=== PATIENT | male | born 1960 | race Caucasian/White ===

== ENCOUNTER → 2021-11-09 | Outpatient (CLI) | payer BC ==
[2021-11-09 18:50] LABS: HEPATITIS B SURFACE ANTIBODY POSITIVE (POSITIVE); HEPATITIS B SURFACE ANTIGEN NEGATIVE (NEGATIVE)
[2021-11-09 19:02] LABS: GC DNA AMPLIFICATION NEGATIVE (NEGATIVE)
[2021-11-09 22:20] LABS: GC DNA AMPLIFICATION NEGATIVE (NEGATIVE)
[2021-11-12 02:12] LABS: %CD4 Pos Lymphs 4.3 % (30.8-58.5); ABS Eosinophils 0.2 x10E3/uL (0.0-0.4); ABS Lymphs 1.4 x10E3/uL (0.7-3.1); ABS Monocytes 0.4 x10E3/uL (0.1-0.9); ABS Neutophils 1.9 x10E3/uL (1.4-7.0); Abs CD4 Helper 60 /uL (359-1519); Abs CD8 Suppres 1134 /uL (109-897); CD4/CD8 Ratio 0.05 (0.92-3.72); Eosinophils 6 % (Not Estab.); HCT 42.8 % (37.5-51.0); HEPATITIS A IgG TOTAL Negative (Negative); HEPATITIS B CORE ANTIBODY IGG Negative (Negative); HGB 14.6 g/dL (13.0-17.7); HIV-1 RNA PCR QUANT 2 LC550285 89300 copies/mL (.); HIV-1 RNA PCR QUANT 3 LC550285 4.951 (.); Immature Grans 0 % (Not Estab.); Lymphocytes 35 % (Not Estab.); MCH 28.9 pg (26.6-33.0); MCHC 34.1 g/dL (31.5-35.7); MCV 85 fL (79-97); Monocytes 9 % (Not Estab.); Neutrophils 49 % (Not Estab.); Platelets 212 x10E3/uL (150-450); RBC 5.06 x10E6/uL (4.14-5.80); RDW 15.5 % (11.6-15.4); WBC 3.9 x10E3/uL (3.4-10.8)
== END ==
LOC: M PLALAB 14:36
PROVIDERS: ATTEND Internal Medicine Infectious Disease
DX: B20 Human immunodeficiency virus [HIV] disease (principal); Z11.3 Encounter for screening for infections with a predominantly sexual mode of transmission

== ENCOUNTER → 2021-12-21 | Outpatient (CLI) | payer BC ==
[2021-12-21 16:23] LABS: ALBUMIN 3.9 GM/DL (3.2-5.2); BILIRUBIN,TOTAL 0.4 MG/DL (0.2-1.0); CALCIUM LEVEL 9.8 MG/DL (8.8-10.2); CREATININE FOR GFR 1.3 MG/DL (0.70-1.30); GLOMERULAR FILTRATION RATE 59.9 (>49); POTASSIUM SERUM 4.6 MEQ/L (3.5-5.1); TOTAL PROTEIN 7.3 GM/DL (6.4-8.2)
== END ==
LOC: M PLALAB 11:41
PROVIDERS: ATTEND Internal Medicine Infectious Disease
DX: B20 Human immunodeficiency virus [HIV] disease (principal)

== ENCOUNTER → 2022-02-01 | Outpatient (CLI) | payer BC ==
[~2022-02-01] MED LIST: E-Z-GAS II EFFERVESCENT PACKET (SODIUM BICARB./CITRIC ACID/SIMETHICONE) As Ordered ONE; E-Z-HD 98% w/w 340GM SUSP BTL As Ordered ONE; E-Z-PAQUE 96% w/w SUSP 176GM BTL As Ordered ONE
== END ==
LOC: M RAD 07:44
PROVIDERS: ATTEND Internal Medicine Infectious Disease
DX: R13.10 Dysphagia, unspecified (principal)

== ENCOUNTER → 2022-03-02 | Outpatient (CLI) | payer BC ==
[~2022-03-02] MED LIST changes: +ATOR1TAB19 PO; +BIKT1TAB PO; +CITA20TA6 PO; -E-Z-GAS II EFFERVESCENT PACKET (SODIUM BICARB./CITRIC ACID/SIMETHICONE) As Ordered ONE; -E-Z-HD 98% w/w 340GM SUSP BTL As Ordered ONE; -E-Z-PAQUE 96% w/w SUSP 176GM BTL As Ordered ONE; +HYDR12CA PO; +IRBE150T7 PO; +OMEP1CAP73 PO; +SYNT88TA2 PO; +VALT1TAB PO
[2022-03-02 11:02] LABS: HEMATOCRIT 44.8 % (42.0-52.0); HEMOGLOBIN 15.1 g/dl (13.5-17.5); MEAN CORPUSCULAR HGB CONC 33.7 g/dl (32.0-36.5); PLATELET COUNT, AUTOMATED 251 10^3/uL (150-450); RED BLOOD COUNT 4.87 10^6/uL (4.30-6.10); WHITE BLOOD COUNT 5.4 10^3/uL (4.0-10.0)
[2022-03-02 11:23] LABS: INR 0.91; PROTHROMBIN TIME 12.4 SECONDS (12.5-14.5)
[2022-03-02 11:28] LABS: APPEARANCE, URINE MANUAL CLEAR (CLEAR); COLOR, URINE MANUAL YELLOW (YELLOW)
[2022-03-02 11:29] LABS: SPECIFIC GRAVITY,URINE MANUAL 1.015 (1.002-1.035)
[2022-03-02 11:30] LABS: ALBUMIN 3.8 G/DL (3.2-5.2); BILIRUBIN,TOTAL 0.5 MG/DL (0.3-1.2); CREATININE FOR GFR 1.3 MG/DL (0.70-1.30); GLOMERULAR FILTRATION RATE 59.9 (>49); POTASSIUM SERUM 4.1 MMOL/L (3.5-5.1)
[2022-03-02 11:31] LABS: BILIRUBIN, URINE MANUAL NEGATIVE (NEGATIVE); BLOOD URINE MANUAL NEGATIVE (NEGATIVE); GLUCOSE, URINE (UA) MANUAL NEGATIVE (NEGATIVE); KETONE, URINE MANUAL NEGATIVE (NEGATIVE); LEUKOCYTE ESTERASE, URINE MAN NEGATIVE (NEGATIVE); NITRITE, URINE MANUAL NEGATIVE (NEGATIVE); PROTEIN, URINE MANUAL NEGATIVE (NEGATIVE); UROBILINOGEN, URINE MANUAL NORMAL (NORMAL)
== END ==
LOC: M PLALAB 09:14
PROVIDERS: ATTEND Urology
DX: N48.9 Disorder of penis, unspecified (principal)

== ENCOUNTER → 2022-03-02 | Outpatient (CLI) | payer BC | LOC: M EKG 09:46 | PROVIDERS: ATTEND Urology | DX: N48.9 Disorder of penis, unspecified (principal) ==

== ENCOUNTER → 2022-03-02 | Outpatient (CLI) | payer BC | LOC: M LABSMTC 09:19 | PROVIDERS: ATTEND Anesthesiology | DX: Z01.812 Encounter for preprocedural laboratory examination (principal); Z20.822 Contact with and (suspected) exposure to COVID-19 ==

== ENCOUNTER 2022-03-07 11:10 | Day surgery (SDC) | payer BC ==
[~2022-03-07] VITALS: Ht 165.1 cm; Wt 77.6 kg
[~2022-03-07 11:10] MED LIST changes: +NS 1,000 ML IV ONE
[2022-03-07] MEDS ORDERED: propofoL 200 MG/20 ML VIAL As Ordered ONE (11:59)
[2022-03-07] MEDS ORDERED: LIDOCAINE 2% 100MG/5ML SDV (FOR ANES.) As Ordered ONE (11:59)
[2022-03-07 13:10] VITALS: BP 113/70
== END 2022-03-07 14:15 | disposition home or self-care (01) ==
LOC: M OPP 11:10
PROVIDERS: ATTEND Internal Medicine Gastroenterology
DX: Z12.11 Encounter for screening for malignant neoplasm of colon (principal); K64.4 Residual hemorrhoidal skin tags; K64.8 Other hemorrhoids; A63.0 Anogenital (venereal) warts; D12.6 Benign neoplasm of colon, unspecified; K44.9 Diaphragmatic hernia without obstruction or gangrene; K22.89 Other specified disease of esophagus; J38.7 Other diseases of larynx; K29.70 Gastritis, unspecified, without bleeding; Z79.02 Long term (current) use of antithrombotics/antiplatelets; Z79.890 Hormone replacement therapy; Z79.899 Other long term (current) drug therapy; Z88.0 Allergy status to penicillin; I10 Essential (primary) hypertension; E78.5 Hyperlipidemia, unspecified; E03.9 Hypothyroidism, unspecified; L40.9 Psoriasis, unspecified; F17.200 Nicotine dependence, unspecified, uncomplicated; Z80.42 Family history of malignant neoplasm of prostate; Z80.51 Family history of malignant neoplasm of kidney

== ENCOUNTER → 2022-03-18 | Outpatient (CLI) | payer BC ==
[~2022-03-18] MED LIST changes: +ISOVUE-370 76% 100ML VIAL As Ordered ONE; -NS 1,000 ML IV ONE
== END ==
LOC: M RAD 14:43
PROVIDERS: ATTEND Otolaryngology
DX: R13.10 Dysphagia, unspecified (principal); B20 Human immunodeficiency virus [HIV] disease

== ENCOUNTER → 2022-03-22 | Outpatient (CLI) | payer BC ==
[~2022-03-22] MED LIST changes: -ISOVUE-370 76% 100ML VIAL As Ordered ONE
[2022-03-24 23:07] LABS: % CD8 Pos Lymph 74.5 % (12.0-35.5); %CD4 Pos Lymphs 5.2 % (30.8-58.5); ABS Basophils 0.1 x10E3/uL (0.0-0.2); ABS Eosinophils 0.3 x10E3/uL (0.0-0.4); ABS Lymphs 1.4 x10E3/uL (0.7-3.1); ABS Monocytes 0.4 x10E3/uL (0.1-0.9); ABS Neutophils 2.7 x10E3/uL (1.4-7.0); Abs CD4 Helper 73 /uL (359-1519); Abs CD8 Suppres 1043 /uL (109-897); CD4/CD8 Ratio 0.07 (0.92-3.72); Eosinophils 5 % (Not Estab.); HCT 44.3 % (37.5-51.0); HIV-1 RNA PCR QUANT 2 LC550285 <20 copies/mL (.); Immature Grans 0 % (Not Estab.); Lymphocytes 29 % (Not Estab.); MCH 30.9 pg (26.6-33.0); MCHC 33.9 g/dL (31.5-35.7); MCV 91 fL (79-97); Monocytes 8 % (Not Estab.); Neutrophils 57 % (Not Estab.); Platelets 235 x10E3/uL (150-450); RBC 4.85 x10E6/uL (4.14-5.80); WBC 4.8 x10E3/uL (3.4-10.8)
== END ==
LOC: M PLALAB 11:05
PROVIDERS: ATTEND Internal Medicine Infectious Disease
DX: B20 Human immunodeficiency virus [HIV] disease (principal)

== ENCOUNTER → 2022-03-24 | Outpatient (REF) | payer BC ==
[~2022-03-24] MED LIST changes: +BACTDSTA
== END ==
LOC: M SFHCDERM 16:26
PROVIDERS: ATTEND Physician Assistant
DX: C46.0 Kaposi's sarcoma of skin (principal)

== ENCOUNTER → 2022-04-04 | Outpatient (CLI) | payer BC | LOC: M LABSMTC 09:27 | PROVIDERS: ATTEND Anesthesiology | DX: Z01.812 Encounter for preprocedural laboratory examination (principal); Z11.52 Encounter for screening for COVID-19 ==

== ENCOUNTER 2022-04-07 09:16 | Day surgery (SDC) | payer BC ==
[~2022-04-07] VITALS: Ht 165.1 cm; Wt 78.0 kg
[2022-04-07] MEDS ORDERED: CLINDAMYCIN 900 MG in IV 1 EA IV ONE (11:55)
[2022-04-07] MEDS ORDERED: LIDOCAINE 2% 100MG/5ML SDV (FOR ANES.) As Ordered ONE (12:58)
[2022-04-07] MEDS ORDERED: propofoL 200 MG/20 ML VIAL As Ordered ONE (12:58)
[2022-04-07] MEDS ORDERED: ONDANSETRON 4MG 2ML VIAL As Ordered ONE (12:58)
[2022-04-07] MEDS ORDERED: MIDAZOLAM INJ 2MG/2ML VIAL As Ordered ONE (12:58)
[2022-04-07] MEDS ORDERED: fentaNYL 100 MCG/2 ML INJECTION As Ordered ONE (12:58)
[2022-04-07] MEDS ORDERED: LIDOCAINE 1% SDV 30ML VIAL As Ordered ONE (13:04)
[2022-04-07] MEDS ORDERED: BUPIVACAINE HCL 0.25% 30ML VIAL As Ordered ONE (13:04)
[2022-04-07] MEDS ORDERED: BACITRACIN OINTMENT 30GM TUBE As Ordered ONE (13:05)
[2022-04-07] MEDS ORDERED: ACETAMINOPHEN 1000MG 100ML IV BAG As Ordered ONE (13:30)
[2022-04-07] MEDS ORDERED: PHENYLephrine 500MCG 5ML (100MCG/ML) SYRINGE As Ordered ONE (13:34)
[2022-04-07] MEDS ORDERED: HYDR-3713 PO (14:15)
[2022-04-07] MEDS ORDERED: CLIN-250 PO (14:15)
[2022-04-07] MEDS ORDERED: ONDANSETRON 4MG 2ML VIAL IV PRN (14:30)
[2022-04-07] MEDS ORDERED: oxyCODONE 5MG TAB PO PRN (14:30)
[2022-04-07] MEDS ORDERED: fentaNYL 100 MCG/2 ML INJECTION IV PRN (14:30)
[2022-04-07] MEDS ORDERED: LR 1,000 ML IV SCH (14:30)
[2022-04-07] MEDS ORDERED: HYDROMORPHONE HCL 0.5 MG/ 0.5 ML SYRINGE IV PRN (14:30)
[2022-04-07 15:35] VITALS: BP 111/64
[2022-04-12] MEDS ORDERED: BACTDSTA (13:05)
== END 2022-04-07 15:41 | disposition home or self-care (01) ==
LOC: M SDC 09:16
PROVIDERS: ATTEND Urology
DX: L90.5 Scar conditions and fibrosis of skin (principal); B20 Human immunodeficiency virus [HIV] disease; R13.10 Dysphagia, unspecified; B37.0 Candidal stomatitis; K14.8 Other diseases of tongue; Z86.19 Personal history of other infectious and parasitic diseases; Z86.16 Personal history of COVID-19; E78.5 Hyperlipidemia, unspecified; E03.9 Hypothyroidism, unspecified; K21.9 Gastro-esophageal reflux disease without esophagitis; L40.9 Psoriasis, unspecified; F41.1 Generalized anxiety disorder; R22.9 Localized swelling, mass and lump, unspecified; F17.210 Nicotine dependence, cigarettes, uncomplicated; Z88.0 Allergy status to penicillin; Z79.899 Other long term (current) drug therapy; Z79.890 Hormone replacement therapy; Z79.2 Long term (current) use of antibiotics
CPT/HCPCS: 54060; 88305; J0131; J1100; J2250; J2370; J2405; J3010; S0020; S0077

== ENCOUNTER 2022-04-20 06:10 | Day surgery (SDC) | payer BC ==
[~2022-04-20] VITALS: Ht 165.1 cm; Wt 80.3 kg
[~2022-04-20 06:10] MED LIST changes: +CLIN-250 PO; +GUSE100A SC; +HYDR-3713 PO
[2022-04-20] MEDS ORDERED: LR 1,000 ML IV SCH ×3 (06:25→09:25)
[2022-04-20] MEDS ORDERED: ONDANSETRON 4MG 2ML VIAL As Ordered ONE (06:55)
[2022-04-20] MEDS ORDERED: ROCURONIUM BROMIDE 50MG/5ML VIAL As Ordered ONE ×2 (06:55→08:04)
[2022-04-20] MEDS ORDERED: LIDOCAINE 2% 100MG/5ML SDV (FOR ANES.) As Ordered ONE (06:55)
[2022-04-20] MEDS ORDERED: SUGAMMADEX SODIUM 500 MG/5 ML VIAL (BRIDION) As Ordered ONE (06:55)
[2022-04-20] MEDS ORDERED: propofoL 200 MG/20 ML VIAL As Ordered ONE (06:55)
[2022-04-20] MEDS ORDERED: MIDAZOLAM INJ 2MG/2ML VIAL As Ordered ONE (06:59)
[2022-04-20] MEDS ORDERED: fentaNYL 100 MCG/2 ML INJECTION As Ordered ONE (06:59)
[2022-04-20] MEDS ORDERED: CETACAINE SPRAY 5GM As Ordered ONE (07:20)
[2022-04-20] MEDS ORDERED: LIDOCAINE W/EPINEPHRINE 1% 20ML VIAL As Ordered ONE (07:21)
[2022-04-20] MEDS ORDERED: METHYLENE BLUE 0.5% (5MG/ML) 10 ML AMP (PROVAYBLUE) As Ordered ONE (07:21)
[2022-04-20] MEDS ORDERED: OXYMETAZOLINE 0.05% NASAL SPRAY (AFRIN) As Ordered ONE (07:21)
[2022-04-20] MEDS ORDERED: ACETAMINOPHEN 1000MG 100ML IV BAG As Ordered ONE (07:49)
[2022-04-20] MEDS ORDERED: EPINEPHrine 1MG/ML INJ 30ML MD-VIAL As Ordered ONE (08:17)
[2022-04-20] MEDS ORDERED: HYDROMORPHONE HCL 0.5 MG/ 0.5 ML SYRINGE IV PRN (09:00)
[2022-04-20] MEDS ORDERED: oxyCODONE 5MG TAB PO PRN (09:00)
[2022-04-20] MEDS ORDERED: ONDANSETRON 4MG 2ML VIAL IV PRN (09:00)
[2022-04-20] MEDS ORDERED: fentaNYL 100 MCG/2 ML INJECTION IV PRN (09:00)
[2022-04-20 10:29] VITALS: BP 127/76
== END 2022-04-20 10:32 | disposition home or self-care (01) ==
LOC: M SDC 06:10
PROVIDERS: ATTEND Otolaryngology
DX: C46.7 Kaposi's sarcoma of other sites (principal); B20 Human immunodeficiency virus [HIV] disease; R49.0 Dysphonia; R13.10 Dysphagia, unspecified; I10 Essential (primary) hypertension; K21.9 Gastro-esophageal reflux disease without esophagitis; E03.9 Hypothyroidism, unspecified; L40.9 Psoriasis, unspecified; Z79.899 Other long term (current) drug therapy; Z79.890 Hormone replacement therapy; Z88.2 Allergy status to sulfonamides; Z88.0 Allergy status to penicillin; F17.210 Nicotine dependence, cigarettes, uncomplicated
CPT/HCPCS: 31535; 87070; 87075; 87076; 87077; 87116; 87186; 87205; 87206; 88305; J0131; J0171; J1100; J2250; J2405; J3010; Q9968

== ENCOUNTER → 2022-05-10 | Outpatient (CLI) | payer BC | LOC: M ONCR 10:40 | PROVIDERS: ATTEND General Practice | DX: C46 Kaposi's sarcoma (principal); C46.7 Kaposi's sarcoma of other sites; B20 Human immunodeficiency virus [HIV] disease; L40.0 Psoriasis vulgaris; Z79.890 Hormone replacement therapy; Z79.899 Other long term (current) drug therapy; Z80.42 Family history of malignant neoplasm of prostate; Z80.51 Family history of malignant neoplasm of kidney; Z88.0 Allergy status to penicillin | CPT/HCPCS: 31575; G0463 ==

== ENCOUNTER → 2022-06-06 | Outpatient (CLI) | payer BC | LOC: M PLARAD 08:53 | PROVIDERS: ATTEND Internal Medicine Hematology & Oncology | DX: C46.7 Kaposi's sarcoma of other sites (principal) | CPT/HCPCS: 78816; A9552 ==

== ENCOUNTER → 2022-06-07 | Outpatient (CLI) | payer BC ==
[2022-06-07 14:11] LABS: ALBUMIN 3.9 G/DL (3.2-5.2); ALKALINE PHOSPHATASE 86 U/L (46-116); ALT/SGPT 22 U/L (7.0-40); AST/SGOT 18 U/L (<34); BILIRUBIN,TOTAL 0.5 MG/DL (0.3-1.2); BLOOD UREA NITROGEN 16 MG/DL (9-23); CARBON DIOXIDE LEVEL 29 MMOL/L (20-31); CHLORIDE LEVEL 103 MMOL/L (98-107); CREATININE FOR GFR 1.25 MG/DL (0.70-1.30); GLOMERULAR FILTRATION RATE > 60.0 (>49); GLUCOSE, FASTING 96 MG/DL (74-106); SODIUM LEVEL 136 MMOL/L (136-145); TOTAL PROTEIN 7.1 G/DL (5.7-8.2)
[2022-06-09 06:09] LABS: % CD8 Pos Lymph 73.7 % (12.0-35.5); %CD4 Pos Lymphs 5.4 % (30.8-58.5); ABS Eosinophils 0.1 x10E3/uL (0.0-0.4); ABS Monocytes 0.4 x10E3/uL (0.1-0.9); ABS Neutophils 2.3 x10E3/uL (1.4-7.0); Abs CD4 Helper 54 /uL (359-1519); Abs CD8 Suppres 737 /uL (109-897); CD4/CD8 Ratio 0.07 (0.92-3.72); Eosinophils 3 % (Not Estab.); HCT 40.7 % (37.5-51.0); HGB 13.8 g/dL (13.0-17.7); HIV-1 RNA PCR QUANT 2 LC550285 <20 copies/mL (.); Immature Grans 0 % (Not Estab.); Lymphocytes 27 % (Not Estab.); MCH 30.5 pg (26.6-33.0); MCHC 33.9 g/dL (31.5-35.7); MCV 90 fL (79-97); Monocytes 10 % (Not Estab.); Neutrophils 59 % (Not Estab.); Platelets 235 x10E3/uL (150-450); RBC 4.52 x10E6/uL (4.14-5.80); RDW 15.6 % (11.6-15.4); WBC 3.8 x10E3/uL (3.4-10.8)
== END ==
LOC: M PLALAB 11:20
PROVIDERS: ATTEND Internal Medicine Infectious Disease
DX: B20 Human immunodeficiency virus [HIV] disease (principal)

== ENCOUNTER 2022-06-10 08:28 | Outpatient (RCR) | payer BC | END 2022-06-12 | LOC: M ONCR 08:28 | PROVIDERS: ATTEND General Practice | DX: C46 Kaposi's sarcoma (principal) ==

== ENCOUNTER 2022-06-22 08:11 | Outpatient (RCR) | payer BC ==
[2022-06-22] MEDS ORDERED: LIDO15SO PO (08:53)
[2022-06-28] MEDS ORDERED: TADA5TAB (10:41)
== END 2022-07-13 ==
LOC: M ONCR 08:11
PROVIDERS: ATTEND General Practice
DX: C46 Kaposi's sarcoma (principal)

== ENCOUNTER 2022-06-30 06:45 | Day surgery (SDC) | payer BC ==
[~2022-06-30] VITALS: Ht 165.1 cm; Wt 75.7 kg
[~2022-06-30 06:45] MED LIST changes: +LIDO15SO PO; +NS 1,000 ML IV ONE; +TADA5TAB
[2022-06-30] MEDS ORDERED: propofoL 200 MG/20 ML VIAL As Ordered ONE (07:27)
[2022-06-30 08:06] VITALS: BP 103/58
== END 2022-06-30 08:24 | disposition home or self-care (01) ==
LOC: M OPP 06:45
PROVIDERS: ATTEND Internal Medicine Gastroenterology
DX: K64.4 Residual hemorrhoidal skin tags (principal); K64.8 Other hemorrhoids; Z86.03 Personal history of neoplasm of uncertain behavior; Z79.02 Long term (current) use of antithrombotics/antiplatelets; Z79.891 Long term (current) use of opiate analgesic; Z79.899 Other long term (current) drug therapy; Z88.0 Allergy status to penicillin; Z53.8 Procedure and treatment not carried out for other reasons

== ENCOUNTER → 2022-09-06 | Outpatient (CLI) | payer BC ==
[~2022-09-06] MED LIST changes: -NS 1,000 ML IV ONE
[2022-09-06 15:11] LABS: ALBUMIN 4.1 G/DL (3.2-5.2); ALKALINE PHOSPHATASE 98 U/L (46-116); ALT/SGPT 20 U/L (7.0-40); AST/SGOT < 8 U/L (<34); BILIRUBIN,TOTAL 0.4 MG/DL (0.3-1.2); BLOOD UREA NITROGEN 19 MG/DL (9-23); CALCIUM LEVEL 9.3 MG/DL (8.3-10.6); CARBON DIOXIDE LEVEL 26 MMOL/L (20-31); CHLORIDE LEVEL 102 MMOL/L (98-107); CREATININE FOR GFR 1.32 MG/DL (0.70-1.30); FOLATE 7.44 NG/ML (>5.4); FREE T4 1.13 NG/DL (0.89-1.76); GLOMERULAR FILTRATION RATE 58.7 (>49); GLUCOSE, FASTING 102 MG/DL (74-106); POTASSIUM SERUM 4.2 MMOL/L (3.5-5.1); SODIUM LEVEL 138 MMOL/L (136-145); THYROID STIMULATING HORMONE 2.863 uIU/ML (0.55-4.78); TOTAL 25(OH) VITAMIN D 23.6 NG/ML (20.0-100.0); TOTAL PROTEIN 7.3 G/DL (5.7-8.2)
[2022-09-06 15:12] LABS: VITAMIN B12 LEVEL 257 PG/ML (211-911)
[2022-09-09 02:10] LABS: % CD8 Pos Lymph 79.1 % (12.0-35.5); %CD4 Pos Lymphs 7.6 % (30.8-58.5); ABS Eosinophils 0.1 x10E3/uL (0.0-0.4); ABS Monocytes 0.5 x10E3/uL (0.1-0.9); ABS Neutophils 4.2 x10E3/uL (1.4-7.0); Abs CD4 Helper 76 /uL (359-1519); Abs CD8 Suppres 791 /uL (109-897); Eosinophils 2 % (Not Estab.); HCT 45.5 % (37.5-51.0); HGB 15.6 g/dL (13.0-17.7); HIV-1 RNA PCR QUANT 2 LC550285 <20 copies/mL (.); Imm ABS Grans 0.1 x10E3/uL (0.0-0.1); Immature Grans 1 % (Not Estab.); Lymphocytes 17 % (Not Estab.); MCHC 34.3 g/dL (31.5-35.7); MCV 93 fL (79-97); Monocytes 8 % (Not Estab.); Neutrophils 71 % (Not Estab.); Platelets 250 x10E3/uL (150-450); RBC 4.87 x10E6/uL (4.14-5.80); RDW 14.2 % (11.6-15.4); WBC 5.9 x10E3/uL (3.4-10.8)
== END ==
LOC: M PLALAB 10:48
PROVIDERS: ATTEND Internal Medicine Infectious Disease
DX: E03.9 Hypothyroidism, unspecified (principal); B20 Human immunodeficiency virus [HIV] disease; R25.1 Tremor, unspecified

== ENCOUNTER → 2022-12-05 | Outpatient (CLI) | payer OTHER | LOC: M PLALAB 11:23 | PROVIDERS: ATTEND Nurse Practitioner Family | DX: L40.9 Psoriasis, unspecified (principal); Z79.899 Other long term (current) drug therapy ==

== ENCOUNTER → 2022-12-05 | Outpatient (CLI) | payer OTHER ==
[2022-12-05 22:35] LABS: ALBUMIN 4.3 G/DL (3.2-5.2); BILIRUBIN,TOTAL 0.7 MG/DL (0.3-1.2); CALCIUM LEVEL 9.7 MG/DL (8.3-10.6); CREATININE FOR GFR 1.37 MG/DL (0.70-1.30); GLOMERULAR FILTRATION RATE 56.2 (>49); POTASSIUM SERUM 4.4 MMOL/L (3.5-5.1); TOTAL PROTEIN 7.5 G/DL (5.7-8.2)
== END ==
LOC: M LAB 11:21
PROVIDERS: ATTEND Internal Medicine Infectious Disease
DX: B20 Human immunodeficiency virus [HIV] disease (principal)

== ENCOUNTER → 2023-04-03 | Outpatient (CLI) | payer OTHER ==
[~2023-04-03] MED LIST changes: +IRBE150T27 PO; -IRBE150T7 PO
[2023-04-03 14:05] LABS: ALBUMIN 4.1 G/DL (3.2-5.2); ALKALINE PHOSPHATASE 94 U/L (46-116); ALT/SGPT 29 U/L (7.0-40); AST/SGOT 16 U/L (<34); BILIRUBIN,TOTAL 0.6 MG/DL (0.3-1.2); BLOOD UREA NITROGEN 16 MG/DL (9-23); CALCIUM LEVEL 9.1 MG/DL (8.3-10.6); CARBON DIOXIDE LEVEL 26 MMOL/L (20-31); CHLORIDE LEVEL 104 MMOL/L (98-107); CREATININE FOR GFR 1.32 MG/DL (0.70-1.30); GLOMERULAR FILTRATION RATE 58.7 (>49); GLUCOSE, FASTING 98 MG/DL (74-106); POTASSIUM SERUM 4.4 MMOL/L (3.5-5.1); SODIUM LEVEL 137 MMOL/L (136-145)
[2023-04-05 04:08] LABS: % CD8 Pos Lymph 70.6 % (12.0-35.5); %CD4 Pos Lymphs 8.1 % (30.8-58.5); ABS Basophils 0.1 x10E3/uL (0.0-0.2); ABS Eosinophils 0.2 x10E3/uL (0.0-0.4); ABS Lymphs 1.4 x10E3/uL (0.7-3.1); ABS Monocytes 0.5 x10E3/uL (0.1-0.9); ABS Neutophils 3.5 x10E3/uL (1.4-7.0); Abs CD4 Helper 113 /uL (359-1519); Abs CD8 Suppres 988 /uL (109-897); CD4/CD8 Ratio 0.11 (0.92-3.72); Eosinophils 3 % (Not Estab.); HCT 44.2 % (37.5-51.0); HGB 15.5 g/dL (13.0-17.7); HIV-1 RNA PCR QUANT 2 LC550285 <20 copies/mL (.); Immature Grans 0 % (Not Estab.); Lymphocytes 24 % (Not Estab.); MCH 31.3 pg (26.6-33.0); MCHC 35.1 g/dL (31.5-35.7); MCV 89 fL (79-97); Monocytes 9 % (Not Estab.); Neutrophils 63 % (Not Estab.); Platelets 257 x10E3/uL (150-450); RBC 4.95 x10E6/uL (4.14-5.80); RDW 14.1 % (11.6-15.4); WBC 5.7 x10E3/uL (3.4-10.8)
== END ==
LOC: M PLALAB 10:59
PROVIDERS: ATTEND Internal Medicine Infectious Disease
DX: B20 Human immunodeficiency virus [HIV] disease (principal)

== ENCOUNTER → 2023-08-24 | Outpatient (CLI) | payer OTHER ==
[~2023-08-24] MED LIST changes: +CABO6SUS IM; -LIDO15SO PO; +LIDO15SO8 PO
== END ==
LOC: M PLALAB 11:14
PROVIDERS: ATTEND Physician Assistant
DX: Z12.5 Encounter for screening for malignant neoplasm of prostate (principal)

== ENCOUNTER → 2023-08-24 | Outpatient (CLI) | payer OTHER ==
[2023-08-24 15:45] LABS: BASO # 0.1 10^3/uL (0.0-0.2); BASO % 1.3 % (0.0-1.0); EOS # 0.2 10^3/uL (0.0-0.5); EOS % 3.6 % (0.0-3.0); HEMATOCRIT 47.2 % (42.0-52.0); HEMOGLOBIN 16.1 g/dl (13.5-17.5); LYMPH # 1.3 10^3/uL (1.5-5.0); LYMPH % 25.2 % (24.0-44.0); MEAN CORPUSCULAR HGB CONC 34.1 g/dl (32.0-36.5); MONO # 0.5 10^3/uL (0.0-0.8); NEUTROPHILS # 3.2 10^3/uL (1.5-8.5); NEUTROPHILS % 60.7 % (36.0-66.0); PLATELET COUNT, AUTOMATED 210 10^3/uL (150-450); RED BLOOD COUNT 5.55 10^6/uL (4.30-6.10); WHITE BLOOD COUNT 5.3 10^3/uL (4.0-10.0)
[2023-08-24 16:08] LABS: ALBUMIN 4.2 G/DL (3.2-5.2); ALKALINE PHOSPHATASE 114 U/L (46-116); ALT/SGPT 22 U/L (7.0-40); AST/SGOT 12 U/L (<34); BILIRUBIN,TOTAL 0.7 MG/DL (0.3-1.2); BLOOD UREA NITROGEN 13 MG/DL (9-23); CALCIUM LEVEL 9.6 MG/DL (8.3-10.6); CARBON DIOXIDE LEVEL 27 MMOL/L (20-31); CHLORIDE LEVEL 102 MMOL/L (98-107); CREATININE FOR GFR 1.24 MG/DL (0.70-1.30); GLOMERULAR FILTRATION RATE > 60.0 (>49); GLUCOSE, FASTING 97 MG/DL (74-106); POTASSIUM SERUM 4.4 MMOL/L (3.5-5.1); SODIUM LEVEL 137 MMOL/L (136-145); TOTAL PROTEIN 7.3 G/DL (5.7-8.2)
== END ==
LOC: M PLALAB 11:21
PROVIDERS: ATTEND Internal Medicine Hematology & Oncology
DX: C46.0 Kaposi's sarcoma of skin (principal)

== ENCOUNTER → 2023-10-19 | Outpatient (CLI) | payer OTHER, MEDICARE ==
[2023-10-20 12:09] LABS: % CD4+ LYMPHS 11.3 % (30.8-58.5); ABSOLUTE CD4 HELPER 147 /uL (359-1519); BASOPHILS 1 % (Not Estab.); BASOPHILS ABSOLUTE 0.1 x10E3/uL (0.0-0.2); EOSINOPHILS 3 % (Not Estab.); EOSINOPHILS ABSOLUTE 0.2 x10E3/uL (0.0-0.4); HCT 45.2 % (37.5-51.0); HGB 15.6 g/dL (13.0-17.7); LYMPHOCYTES 26 % (Not Estab.); LYMPHOCYTES ABSOLUTE 1.3 x10E3/uL (0.7-3.1); MCH 28.9 pg (26.6-33.0); MCHC 34.5 g/dL (31.5-35.7); MCV 84 fL (79-97); MONOCYTES 9 % (Not Estab.); MONOCYTES ABSOLUTE 0.4 x10E3/uL (0.1-0.9); NEUTROPHILS 61 % (Not Estab.); PLT 210 x10E3/uL (150-450); RBC 5.39 x10E6/uL (4.14-5.80); RDW 15.8 % (11.6-15.4); WBC 4.9 x10E3/uL (3.4-10.8)
[2023-10-20 14:56] LABS: HIV-1 RNA PCR QUANT 2 NOT DETECTED copies/mL (NOT DETECTED); HIV-1 RNA PCR QUANT 3 NOT DETECTED (NOT DETECTED)
== END ==
LOC: M PLALAB 10:43
PROVIDERS: ATTEND Internal Medicine Infectious Disease
DX: B20 Human immunodeficiency virus [HIV] disease (principal)

== ENCOUNTER → 2023-11-24 | Outpatient (CLI) | payer MEDICARE, OTHER ==
[2023-11-28 12:56] LABS: QuantiFERON-TB Gold Plus NEGATIVE (NEGATIVE)
== END ==
LOC: M LAB 09:08
PROVIDERS: ATTEND Nurse Practitioner Family
DX: L40.9 Psoriasis, unspecified (principal); Z79.899 Other long term (current) drug therapy; Z88.0 Allergy status to penicillin

== ENCOUNTER → 2024-04-04 | Outpatient (CLI) | payer MEDICARE ==
[~2024-04-04] MED LIST changes: -TADA5TAB; +TADA5TAB94
[2024-04-04 14:27] LABS: ALBUMIN 4.2 G/DL (3.2-5.2); ALKALINE PHOSPHATASE 100 U/L (40-129); ALT/SGPT 23 U/L (7.0-40); AST/SGOT 14 U/L (<34); BILIRUBIN,TOTAL 0.7 MG/DL (0.3-1.2); BLOOD UREA NITROGEN 25 MG/DL (9-23); CARBON DIOXIDE LEVEL 25 MMOL/L (20-31); CHLORIDE LEVEL 104 MMOL/L (98-107); CHOLESTEROL LEVEL 141 MG/DL (<200); CHOLESTEROL RISK RATIO 4.84 (<5); CREATININE FOR GFR 1.03 MG/DL (0.70-1.30); GLOMERULAR FILTRATION RATE > 60.0 (>49); GLUCOSE, FASTING 87 MG/DL (74-106); HDL CHOLESTEROL 29.1 MG/DL (>40); LDL CHOLESTEROL 83.3 MG/DL (<100); NON-HDL-C 111.9 MG/DL; POTASSIUM SERUM 4.5 MMOL/L (3.5-5.1); SODIUM LEVEL 140 MMOL/L (136-145); TOTAL PROTEIN 7.7 G/DL (5.7-8.2); TRIGLYCERIDES LEVEL 143 MG/DL (<150)
[2024-04-05 12:06] LABS: % CD4+ LYMPHS 11.8 % (30.8-58.5); ABSOLUTE CD4 HELPER 212 /uL (359-1519); BASOPHILS 2 % (Not Estab.); BASOPHILS ABSOLUTE 0.1 x10E3/uL (0.0-0.2); EOSINOPHILS 3 % (Not Estab.); EOSINOPHILS ABSOLUTE 0.1 x10E3/uL (0.0-0.4); HGB 15.5 g/dL (13.0-17.7); LYMPHOCYTES 36 % (Not Estab.); LYMPHOCYTES ABSOLUTE 1.8 x10E3/uL (0.7-3.1); MCH 28.5 pg (26.6-33.0); MCHC 34.4 g/dL (31.5-35.7); MCV 83 fL (79-97); MONOCYTES 9 % (Not Estab.); MONOCYTES ABSOLUTE 0.5 x10E3/uL (0.1-0.9); NEUTROPHILS 50 % (Not Estab.); NEUTROPHILS ABSOLUTE 2.4 x10E3/uL (1.4-7.0); PLT 279 x10E3/uL (150-450); RBC 5.43 x10E6/uL (4.14-5.80); RDW 15.6 % (11.6-15.4); WBC 4.8 x10E3/uL (3.4-10.8)
[2024-04-05 12:16] LABS: RPR NON-REACTIVE (NON-REACTIVE)
[2024-04-08 13:48] LABS: HIV-1 RNA PCR QUANT 2 NOT DETECTED copies/mL (NOT DETECTED); HIV-1 RNA PCR QUANT 3 NOT DETECTED (NOT DETECTED)
== END ==
LOC: M PLALAB 11:17
PROVIDERS: ATTEND Internal Medicine Infectious Disease
DX: B20 Human immunodeficiency virus [HIV] disease (principal); R85.610 Atypical squamous cells of undetermined significance on cytologic smear of anus (ASC-US); A63.0 Anogenital (venereal) warts; E78.00 Pure hypercholesterolemia, unspecified; Z11.3 Encounter for screening for infections with a predominantly sexual mode of transmission; Z72.89 Other problems related to lifestyle

== ENCOUNTER → 2024-12-09 | Outpatient (CLI) | payer MEDICARE ==
[~2024-12-09] MED LIST changes: +HYDR12.510 PO; -HYDR12CA PO; +TADA5TAB2; -TADA5TAB94; +TIRZ12.53 SQ
[2024-12-09 13:43] LABS: ALT/SGPT 27.0 U/L (7.0-40); AST/SGOT 18.0 U/L (<34); CALCIUM LEVEL 9.5 MG/DL (8.3-10.6); CARBON DIOXIDE LEVEL 29.0 MMOL/L (20-31); CHLORIDE LEVEL 104.0 MMOL/L (98-107); CREATININE FOR GFR 1.02 MG/DL (0.70-1.30); GLOMERULAR FILTRATION RATE 82.6 (>49); POTASSIUM SERUM 4.7 MMOL/L (3.5-5.1); SODIUM LEVEL 142.0 MMOL/L (136-145)
[2024-12-11 09:03] LABS: RPR NON-REACTIVE (NON-REACTIVE)
[2024-12-11 12:41] LABS: HIV-1 RNA PCR QUANT 2 NOT DETECTED copies/mL (NOT DETECTED); HIV-1 RNA PCR QUANT 3 NOT DETECTED (NOT DETECTED)
[2024-12-12 00:27] LABS: % CD4 15 % (30-61); %CD8 64 % (12-42); ABSOLUTE CD4 CELLS 210 cells/uL (490-1740); ABSOLUTE CD8 CELLS 867 cells/uL (180-1170); ABSOLUTE LYMPHOCYTES 1362 cells/uL (850-3900); CD4 CD8 RATIO 0.24 (0.86-5.00)
== END ==
LOC: M PLALAB 09:32
PROVIDERS: ATTEND Internal Medicine Infectious Disease
DX: B20 Human immunodeficiency virus [HIV] disease (principal); Z11.3 Encounter for screening for infections with a predominantly sexual mode of transmission; Z72.89 Other problems related to lifestyle

== ENCOUNTER → 2025-01-01 | Outpatient (REF) | payer MEDICARE | LOC: M SFHCDERM 12:14 | PROVIDERS: ATTEND Nurse Practitioner Family | DX: Z53.9 Procedure and treatment not carried out, unspecified reason (principal) ==